=== PATIENT | female | born 1935 | race Caucasian/White ===

== ENCOUNTER 2016-07-24 22:02 | Inpatient (IN) | payer MEDICARE ==
[2016-07-24 23:56] LABS: BASOPHIL 0.2 % (0-2); EOSINOPHIL 1.5 % (0-7); HCT 34.5 % (37.0-47.0); HGB 11.6 g/dl (12.5-16.0); LYMPHOCYTE 7.1 % (15-48); MCH 33.1 pg (25.0-31.0); MCHC 33.6 g/dL (32.0-36.0); MCV 98.6 fL (78.0-100.0); MONOCYTE 5.2 % (0-12); MPV 9.7 fL (6.0-9.5); PLT 241 K/uL (150-400); RDW 13.9 % (11.5-14.0)
[2016-07-25 00:10] LABS: WBC 14.6 K/uL (4.0-10.5)
[2016-07-25 00:11] LABS: ALBUMIN 3.5 g/dL (3.4-4.8); BILIRUBIN - TOTAL 0.4 mg/dL (0.1-1.0); POTASSIUM 4.2 mmol/L (3.5-5.1); TOTAL PROTEIN 6.5 g/dL (6.4-8.3)
[2016-07-25 01:54] LABS: BILIRUBIN NEGATIVE (NEGATIVE); BLOOD NEGATIVE Ery/uL (NEGATIVE); CLARITY CLEAR (CLEAR); COLOR YELLOW (YELLOW); GLUCOSE (U) NORMAL (NORMAL); KETONE (U) NEGATIVE (NEGATIVE); LEUKOCYTES 1+ Leu/uL (NEGATIVE); NITRITE NEGATIVE (NEGATIVE); PROTEIN NEGATIVE (NEGATIVE); SPECIFIC GRAVITY 1.015 (1.001-1.030)
[2016-07-25 06:05] LABS: HCT 32.2 % (37.0-47.0); HGB 10.7 g/dl (12.5-16.0); MCH 32.4 pg (25.0-31.0); MCHC 33.2 g/dL (32.0-36.0); MCV 97.6 fL (78.0-100.0); MPV 9.9 fL (6.0-9.5); PLT 194 K/uL (150-400); WBC 9.3 K/uL (4.0-10.5)
[2016-07-25 06:22] LABS: INR 1.1 (0.9-1.2); PROTHROMBIN TIME 13.8 SECONDS (11.7-14.0)
[2016-07-25 06:27] LABS: CREATININE 0.9 mg/dL (0.5-1.0); POTASSIUM 4.3 mmol/L (3.5-5.1)
[2016-07-25 07:14] LABS: BASOPHIL 0.2 % (0-2); EOSINOPHIL 1.1 % (0-7); LYMPHOCYTE 10.6 % (15-48); MONOCYTE 8.1 % (0-12)
[2016-07-26 04:14] LABS: HCT 31.6 % (37.0-47.0); HGB 10.1 g/dl (12.5-16.0); MCH 32.1 pg (25.0-31.0); MCV 100.3 fL (78.0-100.0); MPV 9.5 fL (6.0-9.5); RBC 3.15 M/uL (4.20-5.40); RDW 14.3 % (11.5-14.0); WBC 6.1 K/uL (4.0-10.5)
[2016-07-26 04:20] LABS: INR 1.11 (0.9-1.2); PROTHROMBIN TIME 13.9 SECONDS (11.7-14.0); PTT 30.6 SECONDS (23.2-31.4)
[2016-07-26 04:28] LABS: CREATININE 0.7 mg/dL (0.5-1.0); POTASSIUM 3.9 mmol/L (3.5-5.1)
[2016-07-27 05:09] LABS: HCT 31.2 % (37.0-47.0); HGB 10.1 g/dl (12.5-16.0); MCH 32.3 pg (25.0-31.0); MCHC 32.4 g/dL (32.0-36.0); MCV 99.7 fL (78.0-100.0); MPV 9.1 fL (6.0-9.5); RBC 3.13 M/uL (4.20-5.40); RDW 14.2 % (11.5-14.0); WBC 6.3 K/uL (4.0-10.5)
[2016-07-27 05:25] LABS: BILIRUBIN - TOTAL 0.6 mg/dL (0.1-1.0); CREATININE 0.6 mg/dL (0.5-1.0); GLOBULIN (CALCULATION) 2.3 g/dL (2.2-4.2); POTASSIUM 4.2 mmol/L (3.5-5.1); TOTAL PROTEIN 5.3 g/dL (6.4-8.3)
--- NOTE | 2016-07-27 21:10 | NUR ---
PT RETURNED TO FLOOR AT 1919 FROM SURGERY. REPORT GIVEN FROM ASHLEY ESTEVEZ. PT RETURNED TO FLOOR ON SIMPLE MASK SATS 91%. PT SATS STARTED DECLINING, INTO 70S AND BACK UP INTO HIGH 80S RESPITORY CALLED AND INFORMED. RESP APPLIED 40% ROBERTA MASK. SATS UP TO 93%. LATER SATS STARTED DECLINING AGAINM, RESP AJUSTED TO 50% ROBERTA MASK. ALSO PT KEPT PULLING MASK OFF FACE. CALLED MD AT 2109 INFORMED HIM OF HIGH HEART RATE AND OXYGEN RATE. NEW ORDERS RECEIVED FOR EKG, PLACE PT ON TELY.. CALLED BACK MD WITH RESULTS OF EKG, NEW ORDERS GIVEN AT 2199 TO DO STAT CTA ANGIO CHEST R/O PE. AND SEND TO ICU. AND D/C AICHA.
[2016-07-28 05:09] LABS: HCT 28.1 % (37.0-47.0); HGB 9.4 g/dl (12.5-16.0); MCH 32.5 pg (25.0-31.0); MCHC 33.5 g/dL (32.0-36.0); MCV 97.2 fL (78.0-100.0); RBC 2.89 M/uL (4.20-5.40); RDW 13.5 % (11.5-14.0); WBC 10.8 K/uL (4.0-10.5)
[2016-07-28 05:25] LABS: ALBUMIN 2.4 g/dL (3.4-4.8); BILIRUBIN - TOTAL 0.7 mg/dL (0.1-1.0); CREATININE 0.7 mg/dL (0.5-1.0); GLOBULIN (CALCULATION) 2.5 g/dL (2.2-4.2); MAGNESIUM 1.61 mg/dL (1.40-2.10); POTASSIUM 3.9 mmol/L (3.5-5.1); TOTAL PROTEIN 4.9 g/dL (6.4-8.3)
[2016-07-29 04:49] LABS: HCT 28.2 % (37.0-47.0); HGB 9.3 g/dl (12.5-16.0); MCH 33.1 pg (25.0-31.0); MCV 100.4 fL (78.0-100.0); RBC 2.81 M/uL (4.20-5.40); RDW 14.1 % (11.5-14.0); WBC 7.5 K/uL (4.0-10.5)
[2016-07-29 05:09] LABS: CREATININE 0.6 mg/dL (0.5-1.0); POTASSIUM 4.2 mmol/L (3.5-5.1)
[2016-07-29 16:34] LABS: IRON 31 ug/dL (44-196); IRON % SATURATION 16 %SAT (20-50); TIBC (TOTAL IRON + UIBC) 199 U/L (228-428); UIBC 168 ug/dL (112-346)
--- NOTE | 2016-07-30 01:57 | NUR ---
PT REFUSES TO WEAR NASAL CANNULA. 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 PT LISTENED TO NURSE PREVIOUSLY FOR ABOUT 10-20 MINUTES AT A TIME, BUT WOULD THEN TAKE IT OFF AGAIN. CURRENTLY, PT IS REFUSING TO PUT IT BACK ON AT ALL AFTER SEVERAL DIFFERENT PEOPLE HAVE TRIED TO STRESS THE IMPORTANCE TO PT.
[2016-07-30 06:21] LABS: HCT 23.7 % (37.0-47.0); HGB 7.9 g/dl (12.5-16.0); MCH 32.4 pg (25.0-31.0); MCHC 33.3 g/dL (32.0-36.0); MCV 97.1 fL (78.0-100.0); MPV 9.6 fL (6.0-9.5); RBC 2.44 M/uL (4.20-5.40); RDW 13.5 % (11.5-14.0)
[2016-07-30 06:48] LABS: ALBUMIN 2.5 g/dL (3.4-4.8); BILIRUBIN - TOTAL 0.4 mg/dL (0.1-1.0); CREATININE 0.6 mg/dL (0.5-1.0); POTASSIUM 3.8 mmol/L (3.5-5.1); TOTAL PROTEIN 4.5 g/dL (6.4-8.3)
[2016-07-31 04:32] LABS: HCT 24.4 % (37.0-47.0); HGB 8.2 g/dl (12.5-16.0); MCH 32.7 pg (25.0-31.0); MCHC 33.6 g/dL (32.0-36.0); MCV 97.2 fL (78.0-100.0); MPV 9.5 fL (6.0-9.5); RBC 2.51 M/uL (4.20-5.40); RDW 13.3 % (11.5-14.0); WBC 6.1 K/uL (4.0-10.5)
[2016-07-31 05:07] LABS: CREATININE 0.5 mg/dL (0.5-1.0); POTASSIUM 3.6 mmol/L (3.5-5.1)
[2016-08-01 04:03] LABS: HGB 9.8 g/dl (12.5-16.0); MCH 31.5 pg (25.0-31.0); MCHC 33.8 g/dL (32.0-36.0); MCV 93.2 fL (78.0-100.0); MPV 9.6 fL (6.0-9.5); RBC 3.11 M/uL (4.20-5.40); RDW 14.9 % (11.5-14.0); WBC 5.7 K/uL (4.0-10.5)
[2016-08-01 04:23] LABS: CREATININE 0.5 mg/dL (0.5-1.0); POTASSIUM 3.5 mmol/L (3.5-5.1)
[2016-08-01] MEDS ORDERED: XARELTO15 MG PO (13:37)
[2016-08-01] MEDS ORDERED: CELEXA10 MG PO (13:38)
[2016-08-01] MEDS ORDERED: ACETAMINOPHEN500 M1 PO (13:38)
[2016-08-01] MEDS ORDERED: SAPHRIS10 MG PO (13:38)
[2016-08-01] MEDS ORDERED: ZYRTEC10 MG PO (13:38)
[2016-08-01] MEDS ORDERED: FUROSEMIDE 20MG20 MG PO (13:39)
[2016-08-01] MEDS ORDERED: BENTYL10 MG PO (13:39)
[2016-08-01] MEDS ORDERED: COLACE100 MG PO (13:39)
[2016-08-01] MEDS ORDERED: VITAMIN B-121000 MC1 PO (13:39)
[2016-08-01] MEDS ORDERED: FAMOTIDINE20 MG PO (13:39)
[2016-08-01] MEDS ORDERED: SYNTHROID100 MCG PO (13:40)
[2016-08-01] MEDS ORDERED: ATARAX25 MG PO (13:40)
[2016-08-01] MEDS ORDERED: PRINIVIL20 MG PO (13:40)
[2016-08-01] MEDS ORDERED: ATIVAN1 MG PO (13:40)
[2016-08-01] MEDS ORDERED: MLYLANTA/MAALOX30 ML PO (13:41)
== END 2016-08-01 15:00 | DRG 956 ==
LOC: FER 22:02 → FMS 07-25 01:03 → FICU 07-27 22:00 → FTCU 07-30 12:00
PROVIDERS: Allergy & Immunology; Internal Medicine; Internal Medicine Nephrology; Legal Medicine; Nurse Practitioner Family; ADMIT Internal Medicine
PROC: 0QS604Z Reposition Right Upper Femur with Internal Fixation Device, Open Approach (ICD-10-PCS; 2016-07-27)
PROC: 30233N1 Transfusion of Nonautologous Red Blood Cells into Peripheral Vein, Percutaneous Approach (ICD-10-PCS; principal; 2016-07-31)
DX: S72.141A Displaced intertrochanteric fracture of right femur, initial encounter for closed fracture (principal); S32.391A Other fracture of right ilium, initial encounter for closed fracture; I26.99 Other pulmonary embolism without acute cor pulmonale; J96.00 Acute respiratory failure, unspecified whether with hypoxia or hypercapnia; J18.9 Pneumonia, unspecified organism; E87.2 Acidosis; I95.9 Hypotension, unspecified; G30.9 Alzheimer's disease, unspecified; F02.81 Dementia in other diseases classified elsewhere, unspecified severity, with behavioral disturbance; N39.0 Urinary tract infection, site not specified; D62 Acute posthemorrhagic anemia; W18.30XA Fall on same level, unspecified, initial encounter; Y93.89 Activity, other specified; Y92.129 Unspecified place in nursing home as the place of occurrence of the external cause; E03.9 Hypothyroidism, unspecified; J44.9 Chronic obstructive pulmonary disease, unspecified; J45.909 Unspecified asthma, uncomplicated; F41.1 Generalized anxiety disorder; K21.9 Gastro-esophageal reflux disease without esophagitis; F32.9 Major depressive disorder, single episode, unspecified; M06.842 Other specified rheumatoid arthritis, left hand; M06.841 Other specified rheumatoid arthritis, right hand; Z88.0 Allergy status to penicillin; Z91.018 Allergy to other foods; Z91.048 Other nonmedicinal substance allergy status; Z66 Do not resuscitate; I10 Essential (primary) hypertension; Z90.5 Acquired absence of kidney; Z90.10 Acquired absence of unspecified breast and nipple; D64.9 Anemia, unspecified; Z87.891 Personal history of nicotine dependence
CPT/HCPCS: 36415; 36430; 70450; 71010; 71275; 72192; 73501; 73502; 76000; 80048; 80053; 81001; 82728; 83540; 83550; 83605; 83735; 85025; 85610; 85730; 86850; 86860; 86880; 86900; 86901; 86905; 86922; 86970; 86971; 93005; 94010; 94640; 94760; 97110; 97163; 97167; 97530; 97530-GP; 97535; C1713; C9113; J0456; J1885; J1956; J2060; J2185; J2270; J2405; J2704; J2795; J3010; P9016; Q9967